=== PATIENT | female | born 1940 | race Caucasian/White ===

== ENCOUNTER 2018-01-21 21:26 | Emergency (ER) | payer MEDICARE ==
[~2018-01-21] VITALS: Ht 162.6 cm; Wt 76.2 kg
[~2018-01-21 21:26] MED LIST: ASPIRIN; ATENOLOL; ATENOLOL25 MG PO; DIOVAN; DIOVAN HCT 3201 EAC1 PO; FISH OIL; GLIPIZIDE; GLIPIZIDE5 MG PO; LEVOTHYROXINE; LEVOTHYROXINE75 MCG PO; METFORMIN; METFORMIN HCL500 MG PO; PRADAXA75 MG PO; PRAVASTATIN SOD20 MG PO; TRADJENTA5 MG PO; VIT E
== END 2018-01-21 23:14 | disposition home or self-care (01) ==
LOC: EDBD 21:26 → ER 21:26
DX: S60.571A Other superficial bite of hand of right hand, initial encounter (principal); S60.470A Other superficial bite of right index finger, initial encounter; W54.0XXA Bitten by dog, initial encounter; Y92.008 Other place in unspecified non-institutional (private) residence as the place of occurrence of the external cause; I10 Essential (primary) hypertension; E11.9 Type 2 diabetes mellitus without complications; I48.91 Unspecified atrial fibrillation; E03.9 Hypothyroidism, unspecified
CPT/HCPCS: 99283

== ENCOUNTER → 2018-04-17 | Emergency (ER) | payer MEDICARE ==
[~2018-04-17] VITALS: Ht 162.6 cm; Wt 76.2 kg
[2018-04-17 18:43] LABS: BASOPHILS # (AUTO) 0.1 (0.0-0.1); BASOPHILS % 0.6 % (0.0-1.0); EOSINOPHILS # (AUTO) 0.2 (0.0-0.4); EOSINOPHILS % 2.8 % (0.0-6.0); HEMATOCRIT 36.6 % (34.2-44.1); HEMOGLOBIN 12.3 g/dL (12.0-16.0); LYMPHOCYTES # (AUTO) 1.8 (1.0-3.2); LYMPHOCYTES % 20.8 % (18.0-39.1); MEAN CORPUSCULAR HEMOGLOBIN 31.6 pg (28-32); MEAN CORPUSCULAR HGB CONC 33.6 g/dL (31-35); MEAN CORPUSCULAR VOLUME 94.1 fL (81-99); MONOCYTES # (AUTO) 0.7 (0.2-0.8); MONOCYTES % 8.3 % (4.4-11.3); NEUTROPHILS # (AUTO) 5.7 (2.1-6.9); PLATELET COUNT 180 x10e3/uL (140-360); RED BLOOD COUNT 3.89 x10e6/uL (3.6-5.1); RED CELL DISTRIBUTION WIDTH 12.8 % (11.7-14.4)
[2018-04-17 18:50] LABS: INR 1.59; PROTHROMBIN TIME 17.8 seconds (11.9-14.5)
[2018-04-17 18:51] LABS: PARTIAL THROMBOPLASTIN TIME 44.3 seconds (23.8-35.5)
[2018-04-17 18:56] LABS: ALBUMIN/GLOBULIN RATIO 1.1 (0.8-2.0); CALCIUM 9.6 mg/dL (8.4-10.2); CREATININE, SERUM 1.01 mg/dL (0.57-1.11)
--- NOTE | 2018-04-17 18:56 | Diagnostic Imaging Report ---
EXAMINATION: CHEST 2 VIEWS INDICATION: \S\ORDER PLACED BY \[id number] \S\[id number] \S\Y COMPARISON: Chest radiograph 04/07/2010 FINDINGS: PA and lateral views TUBES and LINES: None. LUNGS: Lungs are well inflated. Lungs are clear. There is no evidence of pneumonia or pulmonary edema. PLEURA: No pleural effusion or pneumothorax. HEART AND MEDIASTINUM: Stable mild enlargement of the cardiac silhouette. BONES AND SOFT TISSUES: Interval median sternotomy wires. Mild multilevel degenerative changes of the thoracic spine. Soft tissues are unremarkable. UPPER ABDOMEN: No free air under the diaphragm. IMPRESSION: No acute thoracic abnormality. Signed by: Dr. Gina Thornton M.D. on 04/17/2018 6:53 PM
[2018-04-17 19:02] LABS: CREATINE KINASE MB 3.6 ng/mL (0-5.0)
[2018-04-17 19:03] LABS: CLARITY,URINE CLOUDY (CLEAR); COLOR,URINE YELLOW (YELLOW)
[2018-04-17 19:04] LABS: BACTERIA,URINE MANY /HPF; BILIRUBIN,URINE NEGATIVE (NEGATIVE); EPITHELIAL CELLS,URINE FEW /LPF; KETONES,URINE NEGATIVE (NEGATIVE); LEUKOCYTE ESTERASE ,URINE 1+ (NEGATIVE); NITRITE,URINE POSITIVE (NEGATIVE); PROTEIN,URINE DIPSTICK NEGATIVE (NEGATIVE); RBC,URINE 0-5 /HPF (0-5); URINE UROBILINOGEN 0.2 mg/dL (0.2 - 1)
[2018-04-17 20:21] VITALS: BP 144/81
== END | disposition home or self-care (01) ==
LOC: ER 16:55
DX: R00.2 Palpitations (principal); R07.89 Other chest pain; N30.91 Cystitis, unspecified with hematuria; I48.91 Unspecified atrial fibrillation
CPT/HCPCS: 36415; 71046; 80053; 81001; 82550; 82553; 84484; 85025; 85610; 85730; 93005; 99284

== ENCOUNTER → 2020-08-21 | Outpatient (CLI) | payer MEDICARE | LOC: RAD 14:24 | PROVIDERS: ATTEND Internal Medicine | DX: R06.02 Shortness of breath (principal) | CPT/HCPCS: 71046 ==

== ENCOUNTER 2021-01-01 14:02 | Emergency (ER) | payer MEDICARE ==
[~2021-01-01] VITALS: Ht 162.6 cm; Wt 76.2 kg
[2021-01-01] MEDS ORDERED: LIDOCAINE 1% W/EPINEPHRINE 20 ML VIAL ONE (14:24)
[2021-01-01] MEDS ORDERED: TRANEXAMIC ACID 1,000 MG/10 ML ML INJ ONE (14:30)
[2021-01-01 15:00] LABS: BASOPHILS # (AUTO) 0.1 (0.0-0.1); BASOPHILS % 0.4 % (0.0-1.0); EOSINOPHILS # (AUTO) 0.1 (0.0-0.4); EOSINOPHILS % 0.9 % (0.0-6.0); HEMATOCRIT 33.2 % (34.2-44.1); LYMPHOCYTES # (AUTO) 3.3 (1.0-3.2); LYMPHOCYTES % 28.9 % (18.0-39.1); MEAN CORPUSCULAR HEMOGLOBIN 30.2 pg (28-32); MEAN CORPUSCULAR HGB CONC 33.1 g/dL (31-35); MEAN CORPUSCULAR VOLUME 91.2 fL (81-99); MONOCYTES # (AUTO) 1.1 (0.2-0.8); MONOCYTES % 9.2 % (4.4-11.3); NEUTROPHILS # (AUTO) 6.9 (2.1-6.9); PLATELET COUNT 257 x10e3/uL (140-360); RED BLOOD COUNT 3.64 x10e6/uL (3.6-5.1)
[2021-01-01 15:16] LABS: ANION GAP 18.7 mmol/L (8-16); CALCIUM 9.9 mg/dL (8.4-10.2); CREATININE, SERUM 1.35 mg/dL (0.57-1.11); POTASSIUM 3.7 mmol/L (3.5-5.1)
[2021-01-01 15:21] LABS: INR 1.06; PROTHROMBIN TIME 14.4 seconds (11.9-14.5)
== END 2021-01-01 16:23 | disposition home or self-care (01) ==
LOC: ER 15:12
DX: S81.811A Laceration without foreign body, right lower leg, initial encounter (principal); W22.8XXA Striking against or struck by other objects, initial encounter; Y93.01 Activity, walking, marching and hiking; Y92.008 Other place in unspecified non-institutional (private) residence as the place of occurrence of the external cause; I10 Essential (primary) hypertension; E11.65 Type 2 diabetes mellitus with hyperglycemia; I48.91 Unspecified atrial fibrillation; E03.9 Hypothyroidism, unspecified; R94.31 Abnormal electrocardiogram [ECG] [EKG]
CPT/HCPCS: 36415; 80048; 82948; 85025; 85610; 93005; 99283

== ENCOUNTER → 2021-07-04 | Outpatient (CLI) | payer MEDICARE | LOC: RAD 14:15 | PROVIDERS: ATTEND Internal Medicine Critical Care Medicine | DX: R06.00 Dyspnea, unspecified (principal) | CPT/HCPCS: 71046 ==

== ENCOUNTER 2021-08-05 18:51 | Inpatient (IN) | payer MEDICARE ==
[~2021-08-05] VITALS: Ht 160 cm; Wt 65.3 kg
[2021-08-05] MEDS ORDERED: ASPIRIN 81 MG CHEW TAB PO ONE ×2 (19:45→20:45)
[2021-08-05 19:58] LABS: BASOPHILS % 0.4 % (0.0-1.0); EOSINOPHILS # (AUTO) 0.2 (0.0-0.4); EOSINOPHILS % 1.9 % (0.0-6.0); HEMATOCRIT 27.6 % (34.2-44.1); HEMOGLOBIN 8.2 g/dL (12.0-16.0); LYMPHOCYTES # (AUTO) 1.8 (1.0-3.2); LYMPHOCYTES % 23.1 % (18.0-39.1); MEAN CORPUSCULAR HEMOGLOBIN 25.2 pg (28-32); MEAN CORPUSCULAR HGB CONC 29.7 g/dL (31-35); MEAN CORPUSCULAR VOLUME 84.7 fL (81-99); MONOCYTES # (AUTO) 0.9 (0.2-0.8); MONOCYTES % 11.7 % (4.4-11.3); NEUTROPHILS # (AUTO) 4.9 (2.1-6.9); NEUTROPHILS % 62.3 % (38.7-80.0); PLATELET COUNT 255 x10e3/uL (140-360); RED BLOOD COUNT 3.26 x10e6/uL (3.6-5.1); RED CELL DISTRIBUTION WIDTH 16.4 % (11.7-14.4)
[2021-08-05 20:14] LABS: ALBUMIN 3.8 g/dL (3.5-5.0); ALBUMIN/GLOBULIN RATIO 1.2 (0.8-2.0); ANION GAP 14.4 mmol/L (8-16); CALCIUM 9.3 mg/dL (8.4-10.2); CREATININE, SERUM 1.11 mg/dL (0.57-1.11); POTASSIUM 3.4 mmol/L (3.5-5.1)
[2021-08-05 20:22] LABS: CREATINE KINASE MB 2.1 ng/mL (0-5.0)
[2021-08-05 20:44] LABS: CLARITY,URINE SL CLOUDY (CLEAR); COLOR,URINE YELLOW (YELLOW); LEUKOCYTE ESTERASE ,URINE TRACE (NEGATIVE)
[2021-08-05 20:45] LABS: KETONES,URINE NEGATIVE (NEGATIVE); NITRITE,URINE POSITIVE (NEGATIVE); PROTEIN,URINE DIPSTICK NEGATIVE (NEGATIVE); URINE UROBILINOGEN 0.2 mg/dL (0.2 - 1)
[2021-08-05] MEDS ORDERED: CEFTRIAXONE 1 GM VIAL IM ONE (20:45)
[2021-08-05 20:52] LABS: BACTERIA,URINE MANY /HPF; RENAL EPITHELIAL CELLS,URINE RARE; WBC,URINE (MAN) 0-5 /HPF (0-5)
[2021-08-05] MEDS: ONDANSETRON HCL INJ 2MG/ML 2ML 2 MG/ML VIAL IV PRN (21:02)
[2021-08-06] MEDS ORDERED: CLONIDINE HCL 0.1 MG TAB PO PRN (03:45)
[2021-08-06 06:15] LABS: BASOPHILS % 0.5 % (0.0-1.0); EOSINOPHILS # (AUTO) 0.2 (0.0-0.4); EOSINOPHILS % 2.5 % (0.0-6.0); HEMATOCRIT 25.5 % (34.2-44.1); HEMOGLOBIN 7.5 g/dL (12.0-16.0); LYMPHOCYTES # (AUTO) 1.7 (1.0-3.2); LYMPHOCYTES % 22.8 % (18.0-39.1); MEAN CORPUSCULAR HEMOGLOBIN 25.3 pg (28-32); MEAN CORPUSCULAR HGB CONC 29.4 g/dL (31-35); MEAN CORPUSCULAR VOLUME 85.9 fL (81-99); MONOCYTES # (AUTO) 0.8 (0.2-0.8); MONOCYTES % 10.8 % (4.4-11.3); NEUTROPHILS # (AUTO) 4.6 (2.1-6.9); PLATELET COUNT 236 x10e3/uL (140-360); RED BLOOD COUNT 2.97 x10e6/uL (3.6-5.1); RED CELL DISTRIBUTION WIDTH 16.5 % (11.7-14.4)
[2021-08-06] MEDS: CEFEPIME 1 GM in SODIUM CHLORIDE 0.9% 50ML 50 ML IV SCH ×3 (06:40→20:34)
[2021-08-06 06:46] LABS: ANION GAP 13.1 mmol/L (8-16); CREATININE, SERUM 0.95 mg/dL (0.57-1.11); POTASSIUM 4.1 mmol/L (3.5-5.1)
[2021-08-06] MEDS: LEVOTHYROXINE SODIUM 75 MCG TAB PO SCH ×2 (07:11→08:48)
[2021-08-06 07:21] LABS: CREATINE KINASE MB 1.8 ng/mL (0-5.0)
[2021-08-06 07:51] VITALS: BP 130/72
[2021-08-06] MEDS ORDERED: SODIUM CHLORIDE 0.9% 250ML 250 ML IV ONE (08:45)
[2021-08-06] MEDS: ATENOLOL 50 MG TAB PO SCH (08:48)
[2021-08-06] MEDS: GLIPIZIDE 5 MG TAB PO SCH ×2 (08:48→17:05)
[2021-08-06] MEDS: METFORMIN HCL 500 MG TAB PO SCH ×2 (08:48→17:05)
[2021-08-06] MEDS ORDERED: DABIGATRAN ETEXILATE 75 MG CAP PO SCH (09:00)
[2021-08-06] MEDS ORDERED: SODIUM CHLORIDE 0.9% 50ML 50 ML ONE (09:23)
[2021-08-06] MEDS ORDERED: IOPAMIDOL 370 MG/ML 200 ML INFUS..BTL INJ ONE (09:23)
[2021-08-06 12:00] VITALS: BP 131/65
[2021-08-06 16:09] VITALS: BP 134/82
[2021-08-06 16:48] VITALS: BP 134/82
[2021-08-06] MEDS ORDERED: DIOVAN HCT 3201 EACH PO (17:11)
[2021-08-06] MEDS ORDERED: XARELTO10 MG PO (17:11)
[2021-08-06 18:00] LABS: CREATINE KINASE MB 2.3 ng/mL (0-5.0)
[2021-08-06 20:00] VITALS: BP 127/77
[2021-08-06] MEDS: PRAVASTATIN 20 MG TAB PO SCH (20:34)
[2021-08-06] MEDS ORDERED: SODIUM CHLORIDE 0.9% 250ML 250 ML ONE (20:53)
[2021-08-06 23:20] VITALS: BP 127/77
[2021-08-07] VITALS (7 sets, daily range): BP systolic 121–166; BP diastolic 61–92
[2021-08-07 05:35] LABS: BASOPHILS % 0.5 % (0.0-1.0); EOSINOPHILS # (AUTO) 0.1 (0.0-0.4); EOSINOPHILS % 2.1 % (0.0-6.0); HEMATOCRIT 29.6 % (34.2-44.1); LYMPHOCYTES # (AUTO) 1.4 (1.0-3.2); LYMPHOCYTES % 23.8 % (18.0-39.1); MEAN CORPUSCULAR HEMOGLOBIN 25.6 pg (28-32); MEAN CORPUSCULAR VOLUME 94.6 fL (81-99); MONOCYTES # (AUTO) 0.7 (0.2-0.8); MONOCYTES % 11.8 % (4.4-11.3); NEUTROPHILS # (AUTO) 3.5 (2.1-6.9); NEUTROPHILS % 61.3 % (38.7-80.0); PLATELET COUNT 215 x10e3/uL (140-360); RED BLOOD COUNT 3.13 x10e6/uL (3.6-5.1); RED CELL DISTRIBUTION WIDTH 17.1 % (11.7-14.4)
[2021-08-07] MEDS: CEFEPIME 1 GM in SODIUM CHLORIDE 0.9% 50ML 50 ML IV SCH ×3 (05:44→21:07)
[2021-08-07 06:04] LABS: ALBUMIN 3.3 g/dL (3.5-5.0); ALBUMIN/GLOBULIN RATIO 1.1 (0.8-2.0); ANION GAP 13.4 mmol/L (8-16); CALCIUM 8.8 mg/dL (8.4-10.2); CREATININE, SERUM 1.02 mg/dL (0.57-1.11); MAGNESIUM 1.6 MG/DL (1.3-2.1); POTASSIUM 4.4 mmol/L (3.5-5.1)
[2021-08-07] MEDS ORDERED: REGADENOSON 0.4 MG/5 ML SYR IV ONE (08:13)
[2021-08-07] MEDS: METFORMIN HCL 500 MG TAB PO SCH ×2 (09:00→18:11)
[2021-08-07] MEDS ORDERED: RIVAROXABAN 15 MG TABLET PO SCH ×2 (09:00→17:00)
[2021-08-07] MEDS: ATENOLOL 50 MG TAB PO SCH (11:00)
[2021-08-07] MEDS: FUROSEMIDE INJ 10 MG/ML 4 ML VIAL IV SCH (11:00)
[2021-08-07] MEDS: VALSARTAN 80 MG TAB PO SCH (12:00)
[2021-08-07] MEDS: GLIPIZIDE 5 MG TAB PO SCH ×2 (12:00→18:11)
[2021-08-07] MEDS: LEVOTHYROXINE SODIUM 75 MCG TAB PO SCH (12:00)
[2021-08-07] MEDS: PRAVASTATIN 20 MG TAB PO SCH ×2 (21:07→21:30)
[2021-08-07 23:27] LABS: FERRITIN 22.11 ng/mL (4.63-204.00)
[2021-08-08] VITALS (15 sets, daily range): BP systolic 130–153; BP diastolic 56–92
[2021-08-08] MEDS: CEFEPIME 1 GM in SODIUM CHLORIDE 0.9% 50ML 50 ML IV SCH ×3 (05:55→21:23)
[2021-08-08 06:36] LABS: BASOPHILS % 0.4 % (0.0-1.0); EOSINOPHILS # (AUTO) 0.2 (0.0-0.4); EOSINOPHILS % 2.9 % (0.0-6.0); HEMATOCRIT 26.8 % (34.2-44.1); LYMPHOCYTES # (AUTO) 1.3 (1.0-3.2); MEAN CORPUSCULAR HEMOGLOBIN 25.6 pg (28-32); MEAN CORPUSCULAR HGB CONC 29.9 g/dL (31-35); MEAN CORPUSCULAR VOLUME 85.6 fL (81-99); MONOCYTES # (AUTO) 0.9 (0.2-0.8); MONOCYTES % 12.1 % (4.4-11.3); NEUTROPHILS # (AUTO) 4.6 (2.1-6.9); NEUTROPHILS % 65.2 % (38.7-80.0); PLATELET COUNT 227 x10e3/uL (140-360); RED BLOOD COUNT 3.13 x10e6/uL (3.6-5.1); RED CELL DISTRIBUTION WIDTH 16.5 % (11.7-14.4)
[2021-08-08 07:04] LABS: ALBUMIN 3.2 g/dL (3.5-5.0); ALBUMIN/GLOBULIN RATIO 1.1 (0.8-2.0); ANION GAP 14.2 mmol/L (8-16); CALCIUM 8.6 mg/dL (8.4-10.2); CREATININE, SERUM 0.96 mg/dL (0.57-1.11); POTASSIUM 4.2 mmol/L (3.5-5.1)
[2021-08-08] MEDS ORDERED: HEPARIN SOD (PORCINE) 1000 UNIT/ML 30ML ONE (07:22)
[2021-08-08] MEDS ORDERED: MIDAZOLAM HCL 2 MG/2 ML VIAL ONE ×2 (07:22→08:43)
[2021-08-08] MEDS ORDERED: FENTANYL CITRATE/PF 100MCG/2 ML INJ ONE ×2 (07:22→09:34)
[2021-08-08] MEDS ORDERED: IOPAMIDOL 370 MG/ML 200 ML INFUS..BTL INJ ONE ×2 (07:23→08:06)
[2021-08-08] MEDS ORDERED: SODIUM CHLORIDE 0.9% 1000ML 1,000 ML ONE (07:23)
[2021-08-08] MEDS ORDERED: HEPARIN SOD/SOD CHLORIDE 2,000 ML ONE (07:23)
[2021-08-08] MEDS ORDERED: LIDOCAINE HCL 2% LOCAL 20 ML VIAL ONE (07:23)
[2021-08-08] MEDS ORDERED: NITROGLYCERIN/D5W 200 MCG/ML 250 ML ONE (07:23)
[2021-08-08] MEDS ORDERED: CLOPIDOGREL BISULFATE 75 MG TAB ONE (08:16)
[2021-08-08] MEDS ORDERED: ASPIRIN 325 MG TAB ONE (08:16)
[2021-08-08] MEDS ORDERED: BIVALRIUDIN 250 MG/VIAL VIAL IV ONE (08:16)
[2021-08-08] MEDS ORDERED: SODIUM CHLORIDE 0.9% 50ML 50 ML ONE (08:16)
[2021-08-08] MEDS ORDERED: NITROGLYCERIN 0.4 MG SUBL ONE (08:56)
[2021-08-08] MEDS: CYANOCOBALAMIN INJ 1,000 MCG/ML VIAL IM SCH (09:00)
[2021-08-08] MEDS ORDERED: NITROGLYCERIN 0.4 MG SUBL SL PRN (09:15)
[2021-08-08] MEDS ORDERED: ZOLPIDEM TARTRATE 5 MG TAB PO PRN (09:15)
[2021-08-08] MEDS: FUROSEMIDE INJ 10 MG/ML 4 ML VIAL IV SCH (11:19)
[2021-08-08] MEDS: LEVOTHYROXINE SODIUM 75 MCG TAB PO SCH (11:19)
[2021-08-08] MEDS: ONDANSETRON HCL INJ 2MG/ML 2ML 2 MG/ML VIAL IV PRN ×2 (11:19→21:29)
[2021-08-08] MEDS: ATENOLOL 50 MG TAB PO SCH (11:38)
[2021-08-08] MEDS: IRON SUCROSE 100 MG in SODIUM CHLORIDE 0.9% 100 ML 100 ML IV SCH (11:44)
[2021-08-08] MEDS: GLIPIZIDE 5 MG TAB PO SCH ×2 (11:46→16:54)
[2021-08-08] MEDS ORDERED: Morphine 4mg Syringe 4 MG/ML INJ IV ONE (12:00)
[2021-08-08] MEDS: VALSARTAN 80 MG TAB PO SCH (12:30)
[2021-08-08] MEDS: FAMOTIDINE 20 MG/2 ML VIAL IV SCH (16:54)
[2021-08-08] MEDS ORDERED: LORAZEPAM 1 MG TAB PO PRN (17:15)
[2021-08-08] MEDS ORDERED: ATORVASTATIN 20 MG TAB PO SCH (21:00)
[2021-08-09] VITALS (12 sets, daily range): BP systolic 98–149; BP diastolic 60–91
[2021-08-09 05:00] LABS: BASOPHILS % 0.3 % (0.0-1.0); EOSINOPHILS # (AUTO) 0.1 (0.0-0.4); EOSINOPHILS % 1.3 % (0.0-6.0); HEMATOCRIT 31.5 % (34.2-44.1); HEMOGLOBIN 9.1 g/dL (12.0-16.0); LYMPHOCYTES % 11.4 % (18.0-39.1); MEAN CORPUSCULAR HEMOGLOBIN 25.1 pg (28-32); MEAN CORPUSCULAR HGB CONC 28.9 g/dL (31-35); MEAN CORPUSCULAR VOLUME 86.8 fL (81-99); MONOCYTES # (AUTO) 1.2 (0.2-0.8); MONOCYTES % 13.6 % (4.4-11.3); NEUTROPHILS # (AUTO) 6.4 (2.1-6.9); NEUTROPHILS % 72.8 % (38.7-80.0); PLATELET COUNT 236 x10e3/uL (140-360); RED BLOOD COUNT 3.63 x10e6/uL (3.6-5.1); RED CELL DISTRIBUTION WIDTH 16.6 % (11.7-14.4)
[2021-08-09 05:27] LABS: ALBUMIN 3.4 g/dL (3.5-5.0); ALBUMIN/GLOBULIN RATIO 0.9 (0.8-2.0); ANION GAP 15.3 mmol/L (8-16); CREATININE, SERUM 0.92 mg/dL (0.57-1.11); POTASSIUM 4.3 mmol/L (3.5-5.1)
[2021-08-09 05:52] LABS: CHOL/HDL RATIO 4.2 (3.0-3.6)
[2021-08-09] MEDS: CEFEPIME 1 GM in SODIUM CHLORIDE 0.9% 50ML 50 ML IV SCH (06:07)
[2021-08-09] MEDS ORDERED: LEVOTHYROXINE SODIUM 75 MCG TAB PO SCH (07:30)
[2021-08-09] MEDS ORDERED: GLIPIZIDE 5 MG TAB PO SCH (07:30)
[2021-08-09] MEDS ORDERED: METFORMIN HCL 500 MG TAB PO SCH (08:00)
[2021-08-09] MEDS: CYANOCOBALAMIN INJ 1,000 MCG/ML VIAL IM SCH (08:12)
[2021-08-09] MEDS: FUROSEMIDE INJ 10 MG/ML 4 ML VIAL IV SCH (08:12)
[2021-08-09] MEDS: IRON SUCROSE 100 MG in SODIUM CHLORIDE 0.9% 100 ML 100 ML IV SCH (08:12)
[2021-08-09] MEDS: FAMOTIDINE 20 MG/2 ML VIAL IV SCH (08:12)
[2021-08-09] MEDS: ATENOLOL 50 MG TAB PO SCH (08:13)
[2021-08-09] MEDS: VALSARTAN 80 MG TAB PO SCH (08:13)
[2021-08-09] MEDS ORDERED: CLOPIDOGREL BISULFATE 75 MG TAB PO SCH (09:00)
[2021-08-09] MEDS ORDERED: ASPIRIN 81 MG CHEW TAB PO SCH (09:00)
[2021-08-09] MEDS ORDERED: PLAVIX75 MG PO (11:38)
== END 2021-08-09 11:57 | disposition home or self-care (01) | DRG 246 ==
LOC: ER 19:13 → ERHOLD 20:58 → MED/SURG 08-06 15:40 → ICU 08-08 09:58
PROVIDERS: ADMIT Internal Medicine; ATTEND Internal Medicine
PROC: 027034Z Dilation of Coronary Artery, One Artery with Drug-eluting Intraluminal Device, Percutaneous Approach (ICD-10-PCS; principal; 2021-08-08)
PROC: 02703ZZ Dilation of Coronary Artery, One Artery, Percutaneous Approach (ICD-10-PCS; 2021-08-08)
PROC: 4A023N7 Measurement of Cardiac Sampling and Pressure, Left Heart, Percutaneous Approach (ICD-10-PCS; 2021-08-08)
PROC: B2111ZZ Fluoroscopy of Multiple Coronary Arteries using Low Osmolar Contrast (ICD-10-PCS; 2021-08-08)
PROC: B2151ZZ Fluoroscopy of Left Heart using Low Osmolar Contrast (ICD-10-PCS; 2021-08-08)
PROC: B2181ZZ Fluoroscopy of Left Internal Mammary Bypass Graft using Low Osmolar Contrast (ICD-10-PCS; 2021-08-08)
DX: I24.9 Acute ischemic heart disease, unspecified (principal); I50.33 Acute on chronic diastolic (congestive) heart failure; N39.0 Urinary tract infection, site not specified; N17.9 Acute kidney failure, unspecified; I27.20 Pulmonary hypertension, unspecified; I11.0 Hypertensive heart disease with heart failure; R07.89 Other chest pain; I25.10 Atherosclerotic heart disease of native coronary artery without angina pectoris; Z95.1 Presence of aortocoronary bypass graft; E03.9 Hypothyroidism, unspecified; E11.65 Type 2 diabetes mellitus with hyperglycemia; Z88.5 Allergy status to narcotic agent; D50.0 Iron deficiency anemia secondary to blood loss (chronic); Z95.5 Presence of coronary angioplasty implant and graft; B96.20 Unspecified Escherichia coli [E. coli] as the cause of diseases classified elsewhere; Z20.822 Contact with and (suspected) exposure to COVID-19
CPT/HCPCS: 36415; 71045; 71260; 78452; 80048; 80053; 80061; 81001; 82550; 82553; 82607; 82728; 82746; 82948; 83540; 83735; 83880; 84466; 84484; 85025; 85045; 87086; 87186; 92928; 93005; 93017; 93306; 93461; 94799; 99152; 99153; 99284; A9502; C1725; C1751; C1760; C1766; C1769; C1887; J0583; J0692; J0696; J1644; J1756; J1940; J2001; J2250; J2270; J2405; J3010; J3420; J7030; J7050; Q9967; U0002